=== PATIENT | male | born 1990 | race Hispanic/Latino ===

== ENCOUNTER 2019-09-09 04:44 | Emergency (ER) | payer MEDICARE ==
[2019-09-09 04:58] VITALS: BP 117/86
--- NOTE | 2019-09-09 05:30 | Emergency Department Report ---
ED Lower Extremity HPI - General Chief Complaint: Extremity Problem,Nontraumatic Stated Complaint: LT THIGHT PROBLEM Time Seen by Provider: 09/09/19 05:08 Source: patient Mode of arrival: Ambulatory Limitations: No Limitations - History of Present Illness Initial Comments: This is a 28-year-old male who presents to the emergency room with left lower extremity pain. 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 Patient denies recent injury. Patient states he is aware pain is related to lymphedema and symptoms are the same. Reports left lower extremity feeling heavy, tight, and discomfort. Patient reports swelling progressively occurred over 2 weeks. Patient states he recently moved here from [place] and left his compression sleeve for the left leg at home which usually controls swelling and pain. States he called a friend to see if they can overnighted and he still awaiting to answer. She denies recent injury, warmth, redness, numbness or tingling, weakness, or. Anesthesia. MD Complaint: leg injury (left leg) Onset/Timin -: week(s) Injury: Leg: Left Severity scale (0 -10): 8 Improves With: nothing Worsens With: weight bearing, movement, palpation Associated Symptoms: swelling, ambulatory. denies: snap/pop sensation, numbness, tingling - Related Data Previous Rx's Medication Instructions Recorded Last Taken Type Compress.stocking,Knee,Reg,Lrg 1 each MC DAILY #1 each 09/09/19 Unknown Rx [Relief Knee Open Toe] traMADoL [Ultram 50 MG tab] 50 mg PO Q6HR PRN #12 tablet 09/09/19 Unknown Rx Allergies Allergy/AdvReac Type Severity Reaction Status Date / Time cefaclor [From Ceclor] Allergy Hives Verified 09/09/19 05:50 ED Review of Systems ROS: Stated complaint: LT THIGHT PROBLEM Other details as noted in HPI Constitutional: denies: chills, fever Respiratory: denies: cough, shortness of breath, wheezing Cardiovascular: denies: chest pain, palpitations Gastrointestinal: denies: abdominal pain, nausea, diarrhea Musculoskeletal: other (left lower Stram swelling and pain). denies: back pain, joint swelling, arthralgia Skin: denies: rash, lesions Neurological: denies: headache, weakness, paresthesias Psychiatric: denies: anxiety, depression ED Past Medical Hx - Surgical History Past Surgical History?: Yes Additional Surgical History: back fusion L1-5, bilat muscle leg muscle transplant - Social History Smoking Status: Never Smoker Substance Use Type: Marijuana - Medications Home Medications: Home Medications Medication Instructions Recorded Confirmed Last Taken Type Compress.stocking,Knee,Reg,Lrg 1 each MC DAILY #1 each 09/09/19 Unknown Rx [Relief Knee Open Toe] traMADoL [Ultram 50 MG tab] 50 mg PO Q6HR PRN #12 tablet 09/09/19 Unknown Rx ED Physical Exam - General Limitations: No Limitations General appearance: alert, in no apparent distress, obese (morbidly) - Respiratory Respiratory exam: Present: normal lung sounds bilaterally. Absent: respiratory distress - Cardiovascular Cardiovascular Exam: Present: regular rate, normal rhythm. Absent: systolic murmur, diastolic murmur, rubs, gallop - GI/Abdominal GI/Abdominal exam: Present: soft, normal bowel sounds - Extremities Exam Extremities exam: Present: full ROM, normal capillary refill (brisk), pedal edema (LLE non-pitting). Absent: joint swelling, calf tenderness - Expanded Lower Extremity Exam Left Knee exam: Present: normal inspection, full ROM Lower Leg exam: Present: full ROM, swelling. Absent: tenderness, abrasion, laceration, ecchymosis, deformity, crepidus, dislocation, erythema, palpable cord, Karime's sign Ankle exam: Present: normal inspection, full ROM, swelling. Absent: tenderness, abrasion, laceration, ecchymosis, deformity, crepidus, dislocation, erythema, anterior draw sign Foot/Toe exam: Present: normal inspection, full ROM Neuro vascular tendon exam: Present: no vascular compromise Gait: Positive: observed and normal - Neurological Exam Neurological exam: Present: alert, oriented X3, normal gait - Psychiatric Psychiatric exam: Present: normal affect, normal mood - Skin Skin exam: Present: warm, dry, intact, normal color. Absent: rash ED Course Vital Signs 09/09/19 04:54 Temperature 97.7 F Pulse Rate 75 Respiratory 18 Rate Blood Pressure 117/86 O2 Sat by Pulse 98 Oximetry ED Lower Extremity MDM - Medical Decision Making Patient was examined by me. Patient is nontoxic appearing and stable. Vitals are normal. Past medical history of congenital lymphedema of the left leg and left leg muscle transplant. Given analgesics while in the ER. On focal exam there is nonpitting edema to left lower extremity, no erythema, no warmth to touch, FROM, brisk capillary refill, 2+ pedal pulse bilaterally, and stable gait. Swelling progressive over 2 weeks with discomfort of left lower extremity reported by patient. At this time I do not believe this to be DVT or infection. Swelling and discomfort is possibly related to congenital lymphedema of left lower extremity. Start tramadol for pain. Instructed to elevate left lower extremity while sitting. Outpatient duplex Doppler. Patient instructed to return between 8 a.m. and 6 p.m. for Doppler. Referral to PCP for continued care or return to the ER with worsening symptoms. Patient discharged home in stable condition. - Differential Diagnosis thrombophlebitis, DVT, fracture Critical care attestation.: If time is entered above; I have spent that time in minutes in the direct care of this critically ill patient, excluding procedure time. ED Disposition Clinical Impression: Lymphedema of left leg, Leg pain, left Disposition: TO HOME OR SELFCARE Is pt being admited?: No Condition: Stable Instructions: Arthralgia (ED), Lymphedema (ED) Additional Instructions: Monitor left leg for size, sensation, color, and temperature. Elevate chart left leg while sitting. Follow up with a primary care doctor from the list p rovided below. Prescriptions: Compress.stocking,Knee,Reg,Lrg [Relief Knee Open Toe] 1 each MC DAILY #1 each traMADoL [Ultram 50 MG tab] 50 mg PO Q6HR PRN #12 tablet PRN Reason: Pain Referrals: [facility] [Outside] - 3-5 Days [facility] [Outside] - 3-5 Days [facility] [Outside] - 3-5 Days [facility] [Provider Group] - 3-5 Days Time of Disposition: 05:53
[2019-09-09] MEDS ORDERED: HYDROcodone/ACETAMINOPHEN 5-325 MG TAB PO ONE (05:40)
== END 2019-09-09 06:06 | disposition home or self-care (01) ==
LOC: ED 04:44
DX: I89.0 Lymphedema, not elsewhere classified (principal); M62.89 Other specified disorders of muscle; F12.10 Cannabis abuse, uncomplicated; Z79.899 Other long term (current) drug therapy; Z88.8 Allergy status to other drugs, medicaments and biological substances